=== PATIENT | male | born 1975 | race Caucasian/White ===

== ENCOUNTER → 2022-06-26 | Outpatient (CLI) | payer BC, OTHER ==
[~2022-06-26] MED LIST: PANT20TA6 PO; ROSU20TA5 PO
== END ==
LOC: M LABSMTC 11:35
PROVIDERS: ATTEND Anesthesiology
DX: Z01.812 Encounter for preprocedural laboratory examination (principal); Z11.52 Encounter for screening for COVID-19

== ENCOUNTER 2022-06-30 10:51 | Day surgery (SDC) | payer BC, OTHER ==
[~2022-06-30] VITALS: Ht 170.2 cm; Wt 96.5 kg
[~2022-06-30 10:51] MED LIST changes: +NS 1,000 ML IV ONE
[2022-06-30] MEDS ORDERED: LIDOCAINE 2% 100MG/5ML SDV (FOR ANES.) As Ordered ONE (10:58)
[2022-06-30] MEDS ORDERED: propofoL 200 MG/20 ML VIAL As Ordered ONE (10:58)
[2022-06-30] MEDS ORDERED: fentaNYL 100 MCG/2 ML INJECTION As Ordered ONE (12:10)
[2022-06-30 13:05] VITALS: BP 131/80
== END 2022-06-30 13:00 | disposition home or self-care (01) ==
LOC: M OPP 10:51
PROVIDERS: ATTEND Internal Medicine Gastroenterology
DX: K20.0 Eosinophilic esophagitis (principal); K29.70 Gastritis, unspecified, without bleeding; K22.89 Other specified disease of esophagus; Z79.02 Long term (current) use of antithrombotics/antiplatelets; Z79.899 Other long term (current) drug therapy; E78.00 Pure hypercholesterolemia, unspecified
CPT/HCPCS: 43239; 88305; J3010

== ENCOUNTER 2024-01-05 10:30 | Day surgery (SDC) | payer BC ==
[~2024-01-05] VITALS: Ht 172.7 cm; Wt 98.0 kg
[~2024-01-05 10:30] MED LIST changes: +LIDOCAINE 2% 100MG/5ML SDV (FOR ANES.) As Ordered ONE; -NS 1,000 ML IV ONE; +PANT40TA29 PO; -ROSU20TA5 PO; +ROSU20TA61 PO; +THERTAB52 PO; +propofoL 200 MG/20 ML VIAL As Ordered ONE; +propofoL 500 MG/50 ML VIAL As Ordered ONE
[2024-01-05] MEDS: NS 1,000 ML IV ONE (10:44)
[2024-01-05] MEDS ORDERED: fentaNYL 100 MCG/2 ML INJECTION As Ordered ONE (11:06)
[2024-01-05 11:41] VITALS: TEMP 97.1
[2024-01-05 12:06] VITALS: BP 141/86; O2SAT 95
== END 2024-01-05 12:15 | disposition home or self-care (01) ==
LOC: M OPP 10:30
PROVIDERS: ATTEND Internal Medicine Gastroenterology
DX: Z12.11 Encounter for screening for malignant neoplasm of colon (principal); D12.6 Benign neoplasm of colon, unspecified; K64.8 Other hemorrhoids; K64.4 Residual hemorrhoidal skin tags; K20.0 Eosinophilic esophagitis; K22.89 Other specified disease of esophagus; Z79.02 Long term (current) use of antithrombotics/antiplatelets; Z79.899 Other long term (current) drug therapy
CPT/HCPCS: 43239; 45385; 88305; J3010